=== PATIENT | female | born 1955 | race Caucasian/White ===

== ENCOUNTER → 2016-09-17 | Outpatient (CLI) | payer OTHER | LOC: BMCIMAGING 13:46 | PROVIDERS: ATTEND Internal Medicine | DX: M81.0 Age-related osteoporosis without current pathological fracture (principal) | CPT/HCPCS: G0202 ==

== ENCOUNTER → 2017-10-04 | Outpatient (CLI) | payer OTHER | LOC: BMCIMAGING 14:28 | PROVIDERS: ATTEND Internal Medicine | DX: Z12.31 Encounter for screening mammogram for malignant neoplasm of breast (principal) ==

== ENCOUNTER 2018-05-21 21:56 | Emergency (ER) | payer OTHER ==
--- NOTE | 2018-05-21 22:28 | EDPHY ---
H & P Time Seen by Provider: 05/21/18 22:13 HPI/ROS: CHIEF COMPLAINT: Dog bite left Achilles HISTORY OF PRESENT ILLNESS: 63-year-old female, immunocompetent, up-to-date tetanus, penicillin allergic, complaining of dog bite left Achilles this evening when she was walking on the [place] [address] [place] when an unknown dog bit her. She attempted to get information from the tinner helper however the tinner helper ran off with the dog. She contacted her primary care provider who recommend she go to the ER for rabies post exposure prophylaxis as well as antibiotics. She is able to weight. The bite did puncture the skin. PCP: Dr. Donell Calhoun PHYSICAL EXAM (Prior to examination, patient consented to physical exam, hands were washed and my usual and customary physical exam procedures followed) 1) GENERAL: Well-developed, well-nourished, alert and oriented. Appears to be in no acute distress. 2) HEAD: Normocephalic 3) HEENT: sclera anicteric 4) LUNGS: Breathing comfortably. 5) SKIN: Left Achilles puncture wound measuring 1 cm. No signs of infection. No evidence of cellulitis. Smoking Status: Never smoked Constitutional: Initial Vital Signs Temperature (C) 36.3 C 05/21/18 22:10 Heart Rate 70 05/21/18 22:10 Respiratory Rate 16 05/21/18 22:10 Blood Pressure 116/73 05/21/18 22:10 O2 Sat (%) 93 05/21/18 22:10 O2 Delivery Mode Room Air Allergies/Adverse Reactions: Penicillins Allergy (Verified 05/21/18 22:09) Home Medications: Medication Instructions Recorded Moxifloxacin [Avelox 400 mg (*)] 400 mg PO DAILY #6 tab 05/21/18 Thyroid 05/21/18 MDM/Departure - MDM Medications Given: Moxifloxacin HCl (Avelox) 400 mg PO DAILY AROLDO PRN Reason: Protocol Stop: 06/20/18 22:44 Last Admin: 05/21/18 23:09 Dose: 400 mg Discontinued Medications Rabies Immune Globulin (Hyperrab 300 Unit/Ml) 1,500 unit IF .ONCE ONE Stop: 05/21/18 23:01 Last Admin: 05/21/18 23:15 Dose: 1,500 unit Rabies Vaccine Human Diploid Cell (Rabavert) 2.5 unit IM .ONCE ONE Stop: 05/21/18 22:35 Last Admin: 05/21/18 23:13 Dose: 2.5 unit ED Course/Re-evaluation: Patient's wound has been anesthetized and has been cleansed. Patient will be have rabies post exposure prophylaxis initiated in the ER, immunoglobulin and rabies vaccine given today and further rabies vaccine will be given at her PCPs office which has already been arranged for the patient. She will be started on antibiotics. She is penicillin allergic. She will be given monotherapy with moxifloxacin to cover common sumanth. She feels comfortable being discharged. She has been in contact with her PCP who will arrange further dose of vaccine in his office. Today is Tuesday. She has been given the dosing schedule. Patient feels comfortable being discharged. All questions and concerns addressed by myself. Patient given my usual and customary discharge precautions and instructions regarding their clinical impression. Care of patient under supervision of secondary supervising physician Dr Baxter . - Depart Disposition: Home, Routine, Self-Care Clinical Impression: Dog bite of left ankle Qualifiers: Encounter type: initial encounter Qualified Code(s): S91.052A - Open bite, left ankle, initial encounter Condition: Good Instructions: Animal Bite (ED) Additional Instructions: Return to the ER if you develop redness, swelling, discharge, warmth to the wound, red streaks going up your leg, or any other symptoms that concern you. Your post exposure prophylaxis for rabies dosing schedule is as follows: Day 0 05/21: You received rabies immunoglobulin and rabies vaccine #1 Day 3 05/24: You will need rabies vaccine #2. Day 05/28: You will need rabies vaccine #3. Day 06/04: You will need will need rabies vaccine #4. Prescriptions: Moxifloxacin [Avelox 400 mg (*)] 400 mg PO DAILY #6 tab Referrals: Donell Calhoun MD [Medical Doctor] - As per Instructions [facility] (ED,. [Edm Groups for Call Sched] - 05/24/18 (You may follow up with the [facility] if you are unable to get rabies vaccine #[address] Calhoun' s office)
[2018-05-21] MEDS ORDERED: RABIES VACC, HUMAN DIPLOID/PF 2.5 UNIT VIAL (RABAVERT) IM ONE (22:34)
[2018-05-21] MEDS ORDERED: RABIES IMMUNE GLOBULIN/PF 300 UNIT/ML VIAL IF ONE (22:34)
[2018-05-21] MEDS ORDERED: MOXIFLOXACIN 400 MG TAB PO SCH (22:45)
[2018-05-21] MEDS ORDERED: RABIES IMMUNE GLOBULIN/PF 1,500 UNIT/5 ML VIAL IF ONE (23:00)
[2018-05-21 23:42] VITALS: BP 118/81
== END 2018-05-21 23:41 | disposition home or self-care (01) ==
DX: S91.052A Open bite, left ankle, initial encounter (principal); Z23 Encounter for immunization; W54.0XXA Bitten by dog, initial encounter; Y92.39 Other specified sports and athletic area as the place of occurrence of the external cause; Y93.01 Activity, walking, marching and hiking; Y99.9 Unspecified external cause status

== ENCOUNTER → 2018-07-27 | Outpatient (CLI) | payer OTHER | LOC: BMCIMAGING 10:47 ==